=== PATIENT | female | born 1995 | race Two or more races ===

== ENCOUNTER 2017-07-15 16:51 | Emergency (ER) | payer SELFPAY ==
[~2017-07-15] VITALS: Ht 152.4 cm; Wt 68.0 kg
[~2017-07-15 16:51] MED LIST: BENTYL10 MG ORAL; MAALOX MAXIMUM355 M1 PO; OMEPRAZOLE20 M3 ORAL; ZOFRAN4 MG ORAL
[2017-07-15] MEDS ORDERED: Ketorolac 30mg Inj IM ONE (17:45)
[2017-07-15] MEDS ORDERED: ZOFRAN4 M3 ORAL (17:57)
[2017-07-15] MEDS ORDERED: TYLENOL EXTRA500 MG ORAL (17:57)
[2017-07-15 18:16] VITALS: BP 126/85
--- NOTE | 2017-07-15 22:12 | Emergency Room Report ---
History of Present Illness General Chief Complaint: Nausea, Vomiting, and Diarrhea Source: Patient Present Illness HPI The patient is a 21-year-old female presenting for nausea, vomiting, and diarrhea for the past 4 days. She denies any known sick contacts or recent travel. She states the symptoms have been improving. Last episode of vomiting and diarrhea were this morning. She states abdominal pain is 8/10 dull ache primarily to the mid upper abdomen. She has been able to tolerate fluids. She denies any other symptoms including fever, chills, fatigue, dizziness, dysuria Allergies: Coded Allergies: No Known Allergies (Unverified , 07/03/13) Patient History Past Medical History: see triage record Pertinent Family History: none Last Menstrual Period: Now: No : 0 Reviewed Nursing Documentation: PMH: Agreed, PSxH: Agreed Nursing Documentation-PMH Past Medical History: No History, Except For Review of Systems All Other Systems: negative except mentioned in HPI Physical Exam Vital Signs Date Time Temp Pulse Resp B/P (MAP) Pulse Ox O2 Delivery O2 Flow Rate FiO2 07/15/17 17:10 98.2 118 20 120/81 98 Room Air Sp02 EP Interpretation: reviewed, normal General Appearance: no apparent distress, alert, GCS 15, non-toxic Head: normocephalic, atraumatic Eyes: bilateral eye normal inspection, bilateral eye PERRL ENT: hearing grossly normal, normal pharynx, no angioedema, normal voice Neck: full range of motion, supple/symm/no masses Respiratory: chest non-tender, lungs clear, normal breath sounds, speaking full sentences Gastrointestinal: normal inspection, no mass, tenderness - epigastric Genitourinary: normal inspection, no CVA tenderness Musculoskeletal: back normal, gait/station normal, normal range of motion, non- tender Neurologic: alert, oriented x3, responsive, motor strength/tone normal, sensory intact, speech normal Psychiatric: judgement/insight normal, memory normal, mood/affect normal, no suicidal/homicidal ideation Skin: normal color, no rash, warm/dry, well hydrated Medical Decision Making PA Attestation Dr. Orr is my supervising physician. Patient management was discussed with my supervising physician Diagnostic Impression: Primary Impression: Gastroenteritis ER Course The patient is a 21-year-old female presenting for nausea, vomiting, and diarrhea for the past 4 days Differential diagnoses considered but not limited to: Gastroenteritis, GERD, gastritis, appendicitis, pancreatitis PE: Vitals WNL. NAD. Abdomen: Normal appearance. Non distended. No ecchymosis. Increased BS. + Epigastric TTP. No McBurney point tenderness. No guarding. No CVA tenderness Patient is given pain medication and Zofran and is feeling better. She'll be discharged home with prescription for pain medication and Zofran. She will take in plenty of fluids. ER precautions are given Last Vital Signs Date Time Temp Pulse Resp B/P (MAP) Pulse Ox O2 Delivery O2 Flow Rate FiO2 07/15/17 18:16 75 18 126/85 100 Room Air 07/15/17 17:10 98.2 Status: improved Disposition: HOME, SELF-CARE Condition: Improved Scripts Ondansetron* (ZOFRAN*) 4 Mg Tablet 4 MG ORAL Q6H Y for Nausea & Vomiting, #10 TAB Prov: ARMOND GRIER P.A. 07/15/17 Acetaminophen* (TYLENOL EXTRA STRENGTH*) 500 Mg Tablet 500 MG ORAL Q8H Y for Prn Headache/Temp > 101, #30 TAB 0 Refills Prov: ARMOND GRIER P.A. 07/15/17 Referrals: NOT CHOSEN IPA/MD,REFERRING (PCP) Patient Instructions: Viral Gastroenteritis, Adult Additional Instructions: I discussed my findings with the patient. All questions and concerns have been answered. Treatment and medication compliance have been addressed. I advised the patient that they need to follow up with PMD in 3-5 days. Return to ED if symptoms worsen, new symptoms arise, or if needed for any reason. Patient verbalized understanding of discharge instructions. ARMOND GRIER Jul 15, 2017 22:12
== END 2017-07-15 18:16 | disposition home or self-care (01) ==
LOC: EMR 17:41
DX: K52.9 Noninfective gastroenteritis and colitis, unspecified (principal)
CPT/HCPCS: 96372; 99283; J1885